=== PATIENT | female | born 1970 | race Caucasian/White ===

== ENCOUNTER 2020-04-18 14:34 | Outpatient (REF) | payer MEDICARE, MEDICAID, SELFPAY ==
[2020-04-18 15:58] LABS: MANUAL DIFF FLAG NO
[2020-04-18 16:01] LABS: Basophils Percent Auto 0.4 % (0-2); Eosinophils Absolute Auto 0.2 X10*3/uL (0.0-0.4); Eosinophils Percent Auto 2.1 % (0-4); Hematocrit 48.9 % (37-47); Hemoglobin 16.4 g/dl (12.0-16.0); Imm Gran Abs Auto 0.01 X10*3/uL (0.00-0.03); Imm Gran Pct Auto 0.1 % (0.0-0.4); Lymphocytes Absolute Auto 3.2 X10*3/uL (1.2-4.9); Lymphocytes Percent Auto 39.6 % (20-40); Mean Corpuscular HGB Conc 33.5 g/dl (31.0-35.0); Mean Corpuscular Volume 89.6 fL (80-98); Mean Platelet Volume 10.1 fL (9.4-12.3); Monocytes Absolute Auto 0.6 X10*3/uL (0.1-1.2); Monocytes Percent Auto 7.7 % (2-11); Neutrophils Percent Auto 50.1 % (45-73); Platelet Count 307 X10*3/uL (160-400); Red Blood Count 5.46 X10*6/uL (4.20-5.50); Red Cell Distribution Width 11.7 % (11.0-16.0)
[2020-04-18 16:15] LABS: Glucose Urine UA NEG (NEG); Leukocyte Esterase Urine 1+ (NEG); Nitrite Urine NEG (NEG); Specific Gravity - Urine 1.025 (1.005-1.025); Urine Blood TRACE (NEG); Urine Ketones NEG (NEG); Urine Protein NEG (NEG-TRACE)
[2020-04-18 16:16] LABS: Appearance Urine HAZY; Color Urine YELLOW
[2020-04-18 16:21] LABS: Bacteria Urine 1+ /LPF; Squamous Epithelial Cell Urine 3+ /LPF
[2020-04-18 16:29] LABS: Alanine Aminotransferase 19 U/L (0-31); Albumin Level 4.7 g/dL (3.5-5.0); Alkaline Phosphatase 53 U/L (39-117); Anion Gap 12 (12-20); Aspartate Amino Transferase 20 U/L (5-31); Bilirubin Total 0.5 mg/dL (0.0-1.0); Blood Urea Nitrogen 15 mg/dL (9-16); Calcium 9.5 mg/dL (8.4-10.2); Carbon Dioxide 27 mmol/L (22-29); Chloride 104 mmol/L (96-108); Cholesterol 288 mg/dL; Estimated Glomerular Filt Rate 54; Glucose Random 92 mg/dL (60-115); HDL Cholesterol 45 mg/dL; LDL Cholesterol Calculated 188 mg/dl; Potassium 4.2 mmol/l (3.3-5.1); Sodium 139 mmol/L (135-145); Total Protein 7.6 g/dL (6.5-8.0); Triglycerides 275 mg/dL
[2020-04-18 16:51] LABS: Erythrocyte Sedimentation Rate 3 MM/HR (0-20)
[2020-04-18 16:53] LABS: TSH reflex Free T4 1.33 mIU/mL (0.32-4.0)
== END 2020-04-18 14:35 | disposition home or self-care (01) ==
LOC: HO.LAB 14:34
PROVIDERS: PCP Internal Medicine; Visit Provider Internal Medicine
DX: Z00.00 Encounter for general adult medical examination without abnormal findings (principal); M79.7 Fibromyalgia; E78.00 Pure hypercholesterolemia, unspecified; E66.9 Obesity, unspecified
CPT/HCPCS: 36415; 80053; 80061; 81001; 81003; 82550; 84443; 85025; 85652; 87086; 87088; 87186

== ENCOUNTER 2020-11-07 10:33 | Outpatient (REF) | payer MEDICARE, MEDICAID, SELFPAY ==
--- NOTE | ~2020-11-07 | MM_ITS ---
EXAMINATION: MM DIAGNOSTIC DIGITAL BREAST TOMOSYNTHESIS, BILATERAL CLINICAL INFORMATION: 50-year-old with family history breast cancer, mother age 46. Prior mammography 2011. Patient scheduled for screening exam. At time of appointment patient notes bilateral pain, upper outer quadrants. The lifetime risk of breast cancer based on the Tyrer-Cuzick Model is 20.2%. COMPARISON: Mammography: 03/19/2012, 10/08/2006 TECHNIQUE: Digital breast tomosynthesis is performed in both the craniocaudal and mediolateral oblique views along with computer-aided detection (CAD). Synthesized 2D images are generated from the tomosynthesis. Additional views are obtained: Spot right CC, bilateral spot MLO. FINDINGS: There are scattered areas of fibroglandular density (ACR BI-RADS breast composition Category b). There is no significant mass, architectural abnormality, or developing density. The right breast has chronic focal nodular asymmetry posterior upper outer quadrant, stable since 2006, and therefore benign. There is no axillary adenopathy. The skin contours are smooth. There is no skin thickening or thickening of the Davion's ligaments. Patient declined additional imaging at time of appointment. MM/MM tomosynthesis diagnostic BI IMPRESSION: 1. No significant changes from prior mammography. No inflammatory changes. 2. Focal nodular asymmetry posterior upper outer right breast stable since 2006 and therefore benign. ASSESSMENT: BI-RADS 2: Benign RECOMMENDATION: 1. Patient should be managed based on the clinical impression. Bilateral targeted breast ultrasound could be performed for further assessment. In addition, if clinically indicated, further evaluation may be considered with surgical consult. Decision to proceed with biopsy should be based on clinical grounds and degree of clinical concern. 2. The lifetime risk of breast cancer based on the Tyrer-Cuzick Model is 20.2%. Additional annual adjunct screening with breast MRI may be of benefit in women with a risk score of 20% or greater. 3. Otherwise, routine annual screening mammography. This patient's information was entered into a reminder system with a target due date for their next mammogram.
== END 2020-11-07 10:34 | disposition home or self-care (01) ==
LOC: HO.MAMMO 10:33
PROVIDERS: Visit Provider Internal Medicine
DX: N64.4 Mastodynia (principal); Z80.3 Family history of malignant neoplasm of breast
CPT/HCPCS: 77062; 77063; 77066; 77067

== ENCOUNTER 2021-04-09 22:49 | Emergency (ER) | payer MEDICARE, MEDICAID, SELFPAY ==
[2021-04-09 22:54] VITALS: BP 116/88; PULSE 79; RESP 20; TEMP 37; O2SAT 98; BMI 30.7
[2021-04-09 23:54] LABS: COVID-19 Test Negative (Negative)
--- NOTE | 2021-04-10 00:30 | ED_ITS ---
HPI - Ear Problem General Chief complaint: Ear Problems Stated complaint: Ear Pain Time Seen by Provider: 04/10/21 00:08 Source: patient Mode of arrival: ambulatory Limitations: no limitations History of Present Illness HPI Narrative: Patient with no history of ear infections in the past complaining of right ear fullness blocked feeling for last 1 week ago to clean with peroxide relief no fever no cold symptoms Related Data Home Medications Medication Instructions Recorded Confirmed oxycodone 20 mg tablet,crush 20 mg PO Q12H 07/04/20 03/04/21 resistant,extended release 12 hr (OxyContin) Previous Rx's Medication Instructions Recorded alprazolam 1 mg tablet See Rx Instructions .ROUTE 03/22/21 .COMPLEX PRN 30 Days #35 tab docusate sodium 100 mg capsule 100 mg PO BID PRN #60 cap 03/22/21 lidocaine 5 % topical patch 1 patch TOPICAL DAILY 30 Days #30 03/22/21 ea azithromycin 500 mg tablet 500 mg PO DAILY 3 Days #3 tab 04/10/21 (Zithromax TRI-LUIS) fluconazole 150 mg tablet 150 mg PO DAILY #1 tab 04/10/21 (Diflucan) [id number] 3.3 4 drp OTIC (EAR) RIGHT QID #10 ml 04/10/21 mg-3 mg-10 mg-0.5 mg/mL ear drops,susp (Cortisporin-TC) Allergies Allergy/AdvReac Type Severity Reaction Status Date / Time hydrocodone [From VICODIN] Allergy Intermediate ITCHING, Verified 03/04/21 19:35 VOMITING Penicillins [PENICILLINS] Allergy Intermediate Hives Verified 03/04/21 19:35 acetaminophen [Vicodin] Allergy Unknown Unknown Verified 03/04/21 19:35 morphine Allergy Unknown Unknown Verified 03/04/21 19:35 penicillin V Allergy Unknown Unknown Verified 03/04/21 19:35 baclofen Allergy Vomiting Verified 04/09/21 22:58 hydromorphone [HYDROMORPHONE] AdvReac Intermediate NAUSEA/VOMI Verified 03/04/21 19:35 TING Cortisone AdvReac Intermediate Depression Uncoded 03/04/21 19:35 Review of Systems Review of Systems: Yes all other systems are reviewed and are negative PMFSH Past Medical History Medical History Anxiety Drug induced constipation Fibromyalgia Lumbar degenerative disc disease Lumbar pain Overweight (BMI 25.0-29.9) Pure hypercholesterolemia Right thigh pain Sacral pain Thoracic spine pain Surgical History History of lithotripsy S/P hip arthroscopy Family History Family History Father CVD (cardiovascular disease) Mother Cancer Social History Social History Housing: Other Housing Other:: patient refused to answer Alcohol intake: never Patient Tobacco Use Status: Former Tobacco user Second Hand Smoke Exposure: Yes Advance Directives: No Advance Directives Information Provided: No service: No Current occupational status: other (pt refused to answer) Physical Exam Vital Signs: Vital Signs: Last Vital Signs Temp 98.6 F 04/09/21 22:54 Pulse 79 04/09/21 22:54 Resp 20 04/09/21 22:54 BP 116/88 04/09/21 22:54 Pulse Ox 98 04/09/21 22:54 Body Mass Index 30.7 Const: General: no acute distress and anxious HENMT: Head: Yes normocephalic Ears: hearing grossly normal bilaterally, TM normal on the left, mastoids normal, Abnormal EAC present erythema, EAC tenderness and otic discharge occluded by discharge and unable to visualize TM General nose exam: Normal external nose present Mouth: Normal oral and palatal mucosa present Throat: Yes posterior oropharynx normal Resp: Effort & Inspection: normal respiratory effort Auscultation: clear to auscultation bilaterally Cardio: Palpation: normal PMI Rate: regular rate Rhythm: regular rhythm Heart sounds: S1 normal heart sound present and S2 normal heart sound present Procedures Ear Wax Removal Right Ear: Results: Re-examined: cerumen removed completely TM Examination: TM(s) intact, normal appearance Ear Canal Exam: atraumatic Patient Tolerated Procedure: well Complications: no problems Technique: ear canal irrigated MDM - Ear Lab Data Labs: Lab Results 04/09/21 Range/Units 23:33 COVID-19 ([facility]) Negative (Negative) COVID-19 Clin Com See Note Discharge Plan Discharge Clinical Impression: Otitis externa Qualifiers: Otitis externa type: unspecified type Chronicity: acute Laterality: right Qualified Code(s): H60.501 - Unspecified acute noninfective otitis externa, right ear Otitis media Qualifiers: Otitis media type: serous Chronicity: acute Laterality: right Recurrence: non- recurrent Qualified Code(s): H65.01 - Acute serous otitis media, right ear Patient Disposition: Home, Self-Care Instructions: Otitis Externa (ED), Ear Infection (ED) Additional Instructions: Take antibiotics as advised Ear drops every 4-6 hours till gets better For the PCP if not better Prescriptions: New azithromycin [Zithromax TRI-LUIS] 500 mg tablet 500 mg PO DAILY 3 Days Qty: 3 RF: 0 Cortisporin-TC 3.3-3-10-0.5 mg/mL drops,suspension 4 drp otic (ear) right QID Qty: 10 RF: 0 fluconazole [Diflucan] 150 mg tablet 150 mg PO DAILY Qty: 1 RF: 0 No Action oxycodone [OxyContin] 20 mg tablet,oral only,ext.rel.12 hr 20 mg PO Q12H RF: 0 Hold Instructions: Doctor's Order alprazolam 1 mg tablet See Rx Instructions .ROUTE .COMPLEX PRN (Reason: anxiety) 30 Days Qty: 35 RF: 0 docusate sodium 100 mg capsule 100 mg PO BID PRN (Reason: constipation) Qty: 60 RF: 5 lidocaine 5 % adhesive patch,medicated 1 patch topical DAILY 30 Days Qty: 30 RF: 5
[2021-04-10] MEDS: Azithromycin 500 MG TABLET PO (00:51)
== END 2021-04-10 01:01 | disposition home or self-care (01) ==
PROVIDERS: Emergency Provider Internal Medicine; PCP Internal Medicine
DX: H60.501 Unspecified acute noninfective otitis externa, right ear (principal); H65.01 Acute serous otitis media, right ear; H92.01 Otalgia, right ear; Z20.822 Contact with and (suspected) exposure to COVID-19
CPT/HCPCS: 36415; 69209; 87635; 99283

== ENCOUNTER 2022-03-01 09:31 | Emergency (ER) | payer MEDICARE, MEDICAID, SELFPAY ==
--- NOTE | ~2022-03-01 | XR_ITS ---
EXAMINATION: XR SHOULDER LEFT XR SHOULDER RIGHT XR CHEST CLINICAL INFORMATION: 52-year-old female with right and left shoulder pain. Also, chest pain during inspiration. COMPARISON: None TECHNIQUE: Chest, PA and lateral views Left shoulder, 3 views Right shoulder, 3 views FINDINGS: CHEST: Lungs are well-inflated and clear. Trachea is midline in position. No interstitial disease, consolidation or mass. No pleural effusion or pneumothorax. Cardiac silhouette and pulmonary vessels are normal in size. The mediastinum and kenneth have normal contour. There are surgical clips within the partially visualized upper abdomen. LEFT SHOULDER: Alignment is normal at the glenohumeral and acromioclavicular joints. Small enthesophyte of the greater tuberosity of the humerus. Mild subchondral cystic change at the minimally degenerated acromioclavicular joint. The glenohumeral joint space is maintained. No evidence of calcium deposition within rotator cuff tendons. The degenerated cervical spine is partially included in the [id number], and osteophytes appear to cause high-grade left-sided neural foraminal stenosis at C6-C7. RIGHT SHOULDER: Alignment is normal at the glenohumeral and acromioclavicular joints. The acromioclavicular joint is normal. The glenohumeral joint space is maintained. No evidence of calcium deposition within rotator cuff tendons. The degenerated cervical spine is partially included in the [id number]. XR/XR shoulder LT min 2V IMPRESSION: * No acute cardiopulmonary abnormality. 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 No fracture or malalignment at either shoulder. * Multilevel disc degenerative changes and uncovertebral joint hypertrophy of the partially evaluated cervical spine. 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
--- NOTE | ~2022-03-01 | XR_ITS ---
EXAMINATION: XR SHOULDER LEFT XR SHOULDER RIGHT XR CHEST CLINICAL INFORMATION: 52-year-old female with right and left shoulder pain. Also, chest pain during inspiration. COMPARISON: None TECHNIQUE: Chest, PA and lateral views Left shoulder, 3 views Right shoulder, 3 views FINDINGS: CHEST: Lungs are well-inflated and clear. Trachea is midline in position. No interstitial disease, consolidation or mass. No pleural effusion or pneumothorax. Cardiac silhouette and pulmonary vessels are normal in size. The mediastinum and kenneth have normal contour. There are surgical clips within the partially visualized upper abdomen. LEFT SHOULDER: Alignment is normal at the glenohumeral and acromioclavicular joints. Small enthesophyte of the greater tuberosity of the humerus. Mild subchondral cystic change at the minimally degenerated acromioclavicular joint. The glenohumeral joint space is maintained. No evidence of calcium deposition within rotator cuff tendons. The degenerated cervical spine is partially included in the [id number], and osteophytes appear to cause high-grade left-sided neural foraminal stenosis at C6-C7. RIGHT SHOULDER: Alignment is normal at the glenohumeral and acromioclavicular joints. The acromioclavicular joint is normal. The glenohumeral joint space is maintained. No evidence of calcium deposition within rotator cuff tendons. The degenerated cervical spine is partially included in the [id number]. XR/XR shoulder RT min 2V IMPRESSION: * No acute cardiopulmonary abnormality. 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 No fracture or malalignment at either shoulder. * Multilevel disc degenerative changes and uncovertebral joint hypertrophy of the partially evaluated cervical spine. 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
--- NOTE | ~2022-03-01 | XR_ITS ---
EXAMINATION: XR SHOULDER LEFT XR SHOULDER RIGHT XR CHEST CLINICAL INFORMATION: 52-year-old female with right and left shoulder pain. Also, chest pain during inspiration. COMPARISON: None TECHNIQUE: Chest, PA and lateral views Left shoulder, 3 views Right shoulder, 3 views FINDINGS: CHEST: Lungs are well-inflated and clear. Trachea is midline in position. No interstitial disease, consolidation or mass. No pleural effusion or pneumothorax. Cardiac silhouette and pulmonary vessels are normal in size. The mediastinum and kenneth have normal contour. There are surgical clips within the partially visualized upper abdomen. LEFT SHOULDER: Alignment is normal at the glenohumeral and acromioclavicular joints. Small enthesophyte of the greater tuberosity of the humerus. Mild subchondral cystic change at the minimally degenerated acromioclavicular joint. The glenohumeral joint space is maintained. No evidence of calcium deposition within rotator cuff tendons. The degenerated cervical spine is partially included in the [id number], and osteophytes appear to cause high-grade left-sided neural foraminal stenosis at C6-C7. RIGHT SHOULDER: Alignment is normal at the glenohumeral and acromioclavicular joints. The acromioclavicular joint is normal. The glenohumeral joint space is maintained. No evidence of calcium deposition within rotator cuff tendons. The degenerated cervical spine is partially included in the [id number]. XR/XR chest 2V IMPRESSION: * No acute cardiopulmonary abnormality. 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 No fracture or malalignment at either shoulder. * Multilevel disc degenerative changes and uncovertebral joint hypertrophy of the partially evaluated cervical spine. 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
[2022-03-01 09:51] VITALS: BP 104/60; PULSE 96; RESP 18; TEMP 36.6; O2SAT 97; BMI 27.4
--- NOTE | 2022-03-01 12:24 | ECG_ITS ---
Test Reason : SOB/CP Blood Pressure : / mmHG Vent. Rate : 079 BPM Atrial Rate : 079 BPM P-R Int : 126 ms QRS Dur : 074 ms QT Int : 404 ms P-R-T Axes : -19 050 035 degrees QTc Int : 463 ms Normal sinus rhythm Nonspecific ST and T wave abnormality Abnormal ECG When compared with ECG of 06-AUG-2010 22:37, Nonspecific T wave abnormality no longer evident in Anterior leads Referred By: Stacey Herrmann Electronically Signed By:JHON DUNNE
--- OUTSIDE RECORDS SUMMARY | 2022-03-01 12:27 | XMS_ITS ---
:1970 Author Care Team Providers Name Role Phone ZAHRA DOWNS MD Primary Care Provider [phone] Allergies Code Code System Name Reaction Severity Status Onset NKDA ? Medications Name Status Start Date Stop Date ? ? alprazolam 1 mg tablet Completed ? 8 baclofen Active ? Not available baclofen 20 mg tablet Completed ? 12/27/2017 ciprofloxacin 500 mg tablet Completed ? 12/02 Colace Active ? Not available DOK 100 mg capsule Completed ? 12/27/2017 TAKE ONE CAPSULE BY MOUTH EVERY DAY fluconazole 150 mg tablet Completed ? 2017 lidocaine 5 % topical patch Completed ? 12/02 medroxyprogesterone 150 mg/mL intramuscular Completed ? 12/27/2017 suspension oxycodone 5 mg tablet Active 12/27/2017 Not availa ble oxycodone-acetaminophen 5 mg-325 mg tablet Completed ? 12/27/2017 OxyContin 20 mg tablet,crush resistant,extended Active ? Not available release tolterodine ER 4 mg capsule,extended release 24 Completed ? 12/27/2017 hr Problems None recorded. Procedures Date Name Performed by ? 06/03/2015 Other Information not avai lable Notes: lithrotripsy R kdiney 06/03/2015 Orthopaedic Surgery Information not avai lable Notes: R hip labral tear 06/03/1996 Other Information not avai lable Notes: gallbaldder removal 06/03/1995 Other Information not avai lable Notes: herniated disc 12/27/2017 MRI, Hip, W/o Contrast [facility] ([facility] [address], [place] [address] (Work [address]) Results Lab Results None recorded. Past Encounters None recorded. Social History Tobacco Smoking Status Never Smoker Vaccine List None recorded. Plan of Care Reminders Provider Appointments None recorded. ? ? Lab None recorded. ? ? Referral None recorded. ? ? Procedures None recorded. ? ? Surgeries None recorded. ? ? Imaging None recorded. ? ? Vitals None recorded.
--- NOTE | 2022-03-01 12:28 | ED_ITS ---
HPI - General Adult General Chief complaint: Back Pain/Injury Stated complaint: Diff breathing Time Seen by Provider: 03/01/22 12:15 Source: patient Mode of arrival: ambulatory History of Present Illness HPI narrative: 52-year-old female with a past medical history of anxiety, fibromyalgia, lumbar degenerative disc disease, HLD, back pain, complaining of acute on chronic bilateral shoulder pain radiating down bilateral upper extremities and bilateral lower chest wall pain worse with deep breathing and movement. Reports associated SOB, and upper extremities feeling weak x mos. Admits recently came off opiates about 1 month ago, has had diffuse myalgias since. Denies fever, cough, abdominal pain, nausea/vomiting, numbness/tingling, neck pain, hematuria Onset (ago): month(s) Related Data Previous Rx's Medication Instructions Recorded duloxetine 30 mg capsule,delayed 30 mg PO DAILY 30 days #30 caps 02/07/22 release hydroxyzine HCl 25 mg tablet 25 mg PO TID PRN anxiety 30 days 02/07/22 #90 tabs acetaminophen 500 mg tablet 500 mg PO Q6H PRN fever or pain 03/01/22 (Tylenol Extra Strength) #14 tabs lidocaine 5 % topical patch 1 patch topical DAILY PRN pain #30 03/01/22 (Lidoderm) ea naproxen 500 mg tablet 500 mg PO BID PRN pain 10 days #20 03/01/22 tabs Allergies Allergy/AdvReac Type Severity Reaction Status Date / Time hydrocodone [From VICODIN] Allergy Intermediate ITCHING, Verified 02/07/22 15:27 VOMITING Penicillins [PENICILLINS] Allergy Intermediate Hives Verified 02/07/22 15:27 acetaminophen [Vicodin] Allergy Unknown Unknown Verified 02/07/22 15:27 morphine Allergy Unknown Unknown Verified 02/07/22 15:27 penicillin V Allergy Unknown Unknown Verified 02/07/22 15:27 baclofen Allergy Vomiting Verified 02/07/22 15:27 hydromorphone [HYDROMORPHONE] AdvReac Intermediate NAUSEA/VOMI Verified 02/07/22 15:27 TING Cortisone AdvReac Intermediate Depression Uncoded 02/07/22 15:27 Review of Systems Review of Systems: Constitutional: No Fever, No Chills, No Fatigue, No Malaise ENT/Mouth: No Ear Pain, No Nasal Congestion, No Sinus Pain, No Hoarseness, No sore throat, No Rhinorrhea, No Swallowing Difficulty Eyes: No Eye Pain, No Swelling, No Redness, No Vision Changes Cardiovascular: + Chest Pain, + SOB, No Dyspnea on Exertion, No Orthopnea, No Edema, No Palpitations Respiratory: No Cough, No Sputum, No Wheezing, No Dyspnea Gastrointestinal: No Nausea, No Vomiting, No Diarrhea, No Constipation, No Abdominal pain+ Genitourinary: No Dysuria, No Hematuria, No Urinary Incontinence/retention, No Flank Pain, No Urinary Flow Changes Musculoskeletal: + joint pain, + Myalgias, No Joint Swelling Skin: No Skin Lesions, No rash Neuro: + Weakness, No Numbness, No Paresthesias, No Loss of Consciousness, No Dizziness, No Headache Yes all other systems are reviewed and are negative Constitutional: Constitutional: Reports as per [facility] Past Medical History Attestation statement: The following information was validated with the patient. Medical History Anxiety Drug induced constipation Fibromyalgia Lumbar degenerative disc disease Overweight (BMI 25.0-29.9) Pure hypercholesterolemia Right thigh pain Sacral pain Thoracic spine pain Surgical History History of lithotripsy S/P hip arthroscopy Family History Family History Father CVD (cardiovascular disease) Mother Cancer Social History Social History Housing: Other Housing Other:: patient refused to answer Alcohol intake: never Patient Tobacco Use Status: Former Tobacco user (pt quit 12 or more years ago.) Tobacco use type: Cigarette e-Cigarette/Vaping Use: Never Used Second Hand Smoke Exposure: Yes Advance Directives: No Advance Directives Information Provided: No service: No Current occupational status: other Cognitive needs: No Hearing needs: No Vision needs: No Physical Exam ED Vital Signs: Vital Signs - 24 hr 03/01/22 09:51 Temperature 98 F Pulse Rate 96 Respiratory Rate 18 Blood Pressure 104/60 Pulse Oximetry 97 Oxygen Delivery Method Room Air BMI result Body Mass Index 27.4 Const General: cooperative, healthy appearing, comfortable and no acute distress Orientation/consciousness: patient oriented x3 Limitations: no limitations HENMT Head: Yes normal to inspection and Yes atraumatic Ears: hearing grossly normal bilaterally General nose exam: Normal external nose present Face and sinus: Yes normal facial exam Eyes General: appearance normal, both eyes and all related structures EOM: EOMs intact bilaterally Neck Neck: Yes normal visual inspection and Yes no meningeal signs Chest Chest palpation & inspection: normal inspection of the chest, no crepitus and no tenderness Resp Effort & Inspection: normal respiratory effort and no respiratory distress Auscultation: clear to auscultation bilaterally, no crackles, no rales and no rhonchi Cardio Rate: regular rate Heart sounds: S1 normal heart sound present and S2 normal heart sound present GI Inspection: Yes normal to inspection Palpation (GI): Soft to palpation, nontender, no guarding and not rigid General: Yes no CVA tenderness Back/Spine/Pelvis Other: No midline thoracic/lumbar spinous tenderness/step-off or deformity Back: no CVA tenderness Skin Rashes: no rashes Wounds: no wounds Neuro General: patient oriented x3, gait normal, tone normal, moves all extremities, no meningeal signs and no focal motor deficits Cranial nerves: Yes CN's II-XII intact bilaterally Gait exam (Neuro): Normal gait present Motor exam (neuro): 5/5 motor strength present throughout Extrem General: Yes normal to inspection Course Course Course Narrative: XR shoulder RT min 2V/XR shoulder LT min 2V/XR chest 2V IMPRESSION: *? No acute cardiopulmonary abnormality. *? Mild osteoarthrosis of the acromioclavicular joint at the left shoulder. No fracture or malalignment at either shoulder. *? Multilevel disc degenerative changes and uncovertebral joint hypertrophy of the partially evaluated cervical spine. 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 >> no appreciable weakness on exam. Patient's symptoms acute on chronic, recommended close follow-up with Neurosurgery -1447--D-dimer WNL. Troponin negative. BMP unremarkable -1538-- CBC WNL Results discussed with patient including worrisome signs and symptoms and strict return precautions, and when to return to the emergency department. They verbalized understanding and feel safe for discharge at this time. Medical Decision Making MDM Narrative Medical decision making narrative: 52-year-old female with a past medical history of anxiety, fibromyalgia, lumbar degenerative disc disease, HLD, back pain, complaining of acute on chronic bilateral shoulder pain radiating down bilateral upper extremities and bilateral lower chest wall pain worse with deep breathing and movement. On exam vital signs stable, NAD, nontoxic appearing, lungs CTA, CP not reproducible, no focal neuro deficits, strength intact throughout, neurovascularly intact. Concern for fibromyalgia flare vs myalgias secondary to discontinuing opiate pain medication vs degenerative disc disease. Low suspicion for CVT, cervical dissection, aortic dissection or cord compression without appreciable weakness on exam and symptoms unchanged x months Concern for PE vs PNA. Symptoms atypical for ACS Plan: CXR, bilateral shoulder x-ray, EKG, labs, re-evaluate Medical Records Medical records reviewed: Yes I reviewed the patient's medical records. Lab Data Lab results reviewed: Yes I reviewed the patient's lab results. Result diagrams: 03/01/22 14:56 03/01/22 13:28 Labs: Lab Results 03/01/22 03/01/22 03/01/22 Range/Units 13:28 13:28 13:28 WBC (4.8-10.8) X10*3/uL RBC (4.20-5.50) X10*6/uL Hgb (12.0-16.0) g/dl Hct (37.0-47.0) % MCV (80.0-98.0) fL MCH (27.0-33.0) pg MCHC (31.0-35.0) g/dl RDW (11.0-16.0) % Plt Count (160-400) X10*3/uL MPV (9.4-12.3) fL Immature Gran % (Auto) (0.0-0.4) % Neut % (Auto) (45-73) % Lymph % (Auto) (20-40) % [place] % (Auto) (2-11) % Eos % (Auto) (0-4) % Baso % (Auto) (0-2) % Lymph # (Auto) (1.2-4.9) X10*3/uL [place] # (Auto) (0.1-1.2) X10*3/uL Eos # (Auto) (0.0-0.4) X10*3/uL Baso # (Auto) (0.0-0.2) X10*3/uL Abs Immat Gran (auto) (0.00-0.03) X10*3/uL Absolute Neuts (auto) (2.0-8.3) x10*3/uL Absolute Nucleated RBC (0.0-0.012) X10*3/uL Nucleated RBC % (auto) (0.0-0.2) /100WBC PT 10.7 (10.0-13.1) SEC INR 0.9 (0.9-1.1) D-Dimer High Sensitivty 171 NG/ML Sodium 141 (135-145) mmol/L Potassium 4.0 (3.3-5.1) mmol/L Chloride 105 (96-108) mmol/L Carbon Dioxide 25 (22-29) mmol/L Anion Gap 15 (12-20) BUN 9 (9-16) mg/dL Creatinine 0.84 (0.5-1.4) mg/dL Estim Creat Clear Calc 82.1 Estimated GFR > 60 Random Glucose 102 (60-115) mg/dL Calcium 9.3 (8.4-10.2) mg/dL Magnesium 2.0 (1.6-2.6) mg/dL Total Bilirubin 0.4 (0.0-1.0) mg/dL Direct Bilirubin < 0.2 (0.0-0.5) mg/dL AST 19 (5-31) U/L ALT 27 (0-31) U/L Alkaline Phosphatase 55 (39-117) U/L Troponin I High Sens (<3.5-17.0) ng/L B-Natriuretic Peptide (<100) pg/mL Total Protein 6.9 (6.5-8.0) g/dL Albumin 4.2 (3.5-5.0) g/dL COVID-19 ([facility]) (Negative) COVID-19 Clin Com 03/01/22 03/01/22 03/01/22 Range/Units 13:28 13:29 14:56 WBC 8.0 (4.8-10.8) X10*3/uL RBC 4.98 (4.20-5.50) X10*6/uL Hgb 14.9 (12.0-16.0) g/dl Hct 44.0 (37.0-47.0) % MCV 88.4 (80.0-98.0) fL MCH 29.9 (27.0-33.0) pg MCHC 33.9 (31.0-35.0) g/dl RDW 12.2 (11.0-16.0) % Plt Count 258 (160-400) X10*3/uL MPV 8.7 L (9.4-12.3) fL Immature Gran % (Auto) 0.2 (0.0-0.4) % Neut % (Auto) 55.1 (45-73) % Lymph % (Auto) 32.1 (20-40) % [place] % (Auto) 10.4 (2-11) % Eos % (Auto) 2.0 (0-4) % Baso % (Auto) 0.2 (0-2) % Lymph # (Auto) 2.6 (1.2-4.9) X10*3/uL [place] # (Auto) 0.8 (0.1-1.2) X10*3/uL Eos # (Auto) 0.2 (0.0-0.4) X10*3/uL Baso # (Auto) 0.0 (0.0-0.2) X10*3/uL Abs Immat Gran (auto) 0.02 (0.00-0.03) X10*3/uL Absolute Neuts (auto) 4.4 (2.0-8.3) x10*3/uL Absolute Nucleated RBC 0.000 (0.0-0.012) X10*3/uL Nucleated RBC % (auto) 0.0 (0.0-0.2) /100WBC PT (10.0-13.1) SEC INR (0.9-1.1) D-Dimer High Sensitivty NG/ML Sodium (135-145) mmol/L Potassium (3.3-5.1) mmol/L Chloride (96-108) mmol/L Carbon Dioxide (22-29) mmol/L Anion Gap (12-20) BUN (9-16) mg/dL Creatinine (0.5-1.4) mg/dL Estim Creat Clear Calc Estimated GFR Random Glucose (60-115) mg/dL Calcium (8.4-10.2) mg/dL Magnesium (1.6-2.6) mg/dL Total Bilirubin (0.0-1.0) mg/dL Direct Bilirubin (0.0-0.5) mg/dL AST (5-31) U/L ALT (0-31) U/L Alkaline Phosphatase (39-117) U/L Troponin I High Sens < 3.5 (<3.5-17.0) ng/L B-Natriuretic Peptide 27 (<100) pg/mL Total Protein (6.5-8.0) g/dL Albumin (3.5-5.0) g/dL COVID-19 ([facility]) Negative (Negative) COVID-19 Clin Com See Note ECG Data Attestation: I personally reviewed and interpreted this ECG as follows: Interpretation: EKG normal sinus rhythm at a rate of 79. Pr interval 126. QTC 463. No STEMI. Nonischemic. Discharge Plan Discharge Clinical Impression: Chest wall pain, Chronic pain in shoulder Patient Disposition: Home, Self-Care Instructions: Chronic Pain (ED), Chest Wall Pain (ED) Additional Instructions: Your blood work was reassuring. Your x-ray does not show pneumonia, however the x-ray of her shoulder does show multilevel degenerative disc disease and stenosis at C6-C7, please follow-up with neurosurgery in regards to this. If you develop fever, weakness, numbness, headache, dizziness return to the emergency department Naproxen as an anti-inflammatory / pain medication, take with food Lidoderm patches are numbing patches, apply to painful area In addition take Tylenol at home If symptoms persist or worsen, pain becomes unbearable, you developed urinary retention or incontinence, or weakness return to the ED Prescriptions: New lidocaine [Lidoderm] 5 % adhesive patch,medicated 1 patch topical DAILY MDD remove after 12 hours PRN (Reason: pain) Qty: 30 0RF Rx Instructions: leave on most painful area for up to 12 hrs acetaminophen [Tylenol Extra Strength] 500 mg tablet 500 mg PO Q6H PRN (Reason: fever or pain) Qty: 14 0RF naproxen 500 mg tablet 500 mg PO BID PRN (Reason: pain) 10 Days Qty: 20 0RF No Action duloxetine 30 mg capsule,delayed release(DR/EC) 30 mg PO DAILY 30 Days Qty: 30 2RF hydroxyzine HCl 25 mg tablet 25 mg PO TID PRN (Reason: anxiety) 30 Days Qty: 90 2RF Referrals: Naldo Richardson MD [Primary Care Provider] - 3 days Lilly Atkinson MD [Physician] - 1 week
[2022-03-01 13:47] LABS: INTERNATIONAL NORM RATIO 0.9 (0.9-1.1); Prothrombin Time 10.7 SEC (10.0-13.1)
[2022-03-01 13:50] LABS: D Dimer High Sensitivity 171 NG/ML
[2022-03-01 13:54] LABS: COVID-19 Test Negative (Negative); IDNOW Serial# 55D5AD1C
[2022-03-01 13:56] LABS: Alanine Aminotransferase 27 U/L (0-31); Albumin Level 4.2 g/dL (3.5-5.0); Alkaline Phosphatase 55 U/L (39-117); Anion Gap 15 (12-20); Aspartate Amino Transferase 19 U/L (5-31); Bilirubin Direct < 0.2 mg/dL (0.0-0.5); Bilirubin Total 0.4 mg/dL (0.0-1.0); Blood Urea Nitrogen 9 mg/dL (9-16); Calcium 9.3 mg/dL (8.4-10.2); Carbon Dioxide 25 mmol/L (22-29); Chloride 105 mmol/L (96-108); Creatinine Clr Calc Pharmacy 82.1; Estimated Glomerular Filt Rate > 60; Glucose Random 102 mg/dL (60-115); Sodium 141 mmol/L (135-145); Total Protein 6.9 g/dL (6.5-8.0)
[2022-03-01 14:01] LABS: B Type Natriuretic Peptide 27 pg/mL (<100); Troponin-I High Sensitivity < 3.5 ng/L (<3.5-17.0)
[2022-03-01 15:03] LABS: Basophils Percent Auto 0.2 % (0-2); Eosinophils Absolute Auto 0.2 X10*3/uL (0.0-0.4); Hemoglobin 14.9 g/dl (12.0-16.0); Imm Gran Abs Auto 0.02 X10*3/uL (0.00-0.03); Imm Gran Pct Auto 0.2 % (0.0-0.4); Lymphocytes Absolute Auto 2.6 X10*3/uL (1.2-4.9); Lymphocytes Percent Auto 32.1 % (20-40); Mean Corpuscular HGB Conc 33.9 g/dl (31.0-35.0); Mean Corpuscular Hemoglobin 29.9 pg (27.0-33.0); Mean Corpuscular Volume 88.4 fL (80.0-98.0); Mean Platelet Volume 8.7 fL (9.4-12.3); Monocytes Absolute Auto 0.8 X10*3/uL (0.1-1.2); Monocytes Percent Auto 10.4 % (2-11); Neutrophils Absolute Auto 4.4 x10*3/uL (2.0-8.3); Neutrophils Percent Auto 55.1 % (45-73); Platelet Count 258 X10*3/uL (160-400); Red Blood Count 4.98 X10*6/uL (4.20-5.50); Red Cell Distribution Width 12.2 % (11.0-16.0)
[2022-03-01 15:18] LABS: MANUAL DIFF FLAG NO
== END 2022-03-01 16:01 | disposition home or self-care (01) ==
PROVIDERS: Physician Assistant; Emergency Provider Emergency Medicine; PCP Internal Medicine
DX: R07.89 Other chest pain (principal); G89.29 Other chronic pain; M25.512 Pain in left shoulder; M25.511 Pain in right shoulder; R06.02 Shortness of breath; Z20.822 Contact with and (suspected) exposure to COVID-19; E78.00 Pure hypercholesterolemia, unspecified; Z87.891 Personal history of nicotine dependence; Z79.899 Other long term (current) drug therapy
CPT/HCPCS: 36415; 71046; 73030; 80048; 80076; 83735; 83880; 84484; 85025; 85379; 85610; 87635; 93005; 99283; 99284

== ENCOUNTER 2022-08-17 11:22 | Outpatient (REF) | payer MEDICARE, MEDICAID, SELFPAY ==
[2022-08-17 13:39] LABS: Appearance Urine Cloudy; Color Urine Yellow; Glucose Urine UA Negative (Negative); Leukocyte Esterase Urine Moderate (2+) (Negative); Nitrite Urine Negative (Negative); PH 7.5 (5.0-9.0); UMIC TRIGGER UACC YES; Urine Blood Negative (Negative); Urine Ketones Negative (Negative); Urine Protein Negative (Neg-Trace)
[2022-08-17 13:50] LABS: Bacteria Urine Trace (None Seen); Hyaline Casts Urine 0-2 /LPF (0-2); RBC Urine 0-2 /HPF (0-2); UACC Culture Trigger YES
[2022-08-17 14:19] LABS: Cholesterol 336 mg/dL; HDL Cholesterol 54 mg/dL; LDL Cholesterol Calculated 237 mg/dl; Triglycerides 226 mg/dL
[2022-08-17 15:20] LABS: TSH reflex Free T4 1.19 uIU/mL (0.32-4.0)
[2022-08-17 15:37] LABS: Vitamin D 25-OH Total 21.4 ng/mL (>30)
== END 2022-08-17 11:23 | disposition home or self-care (01) ==
LOC: HO.10HDL 11:22
PROVIDERS: Visit Provider Internal Medicine
DX: E78.00 Pure hypercholesterolemia, unspecified (principal); E55.9 Vitamin D deficiency, unspecified; R30.0 Dysuria
CPT/HCPCS: 36415; 80061; 81001; 82306; 84443; 87086